=== PATIENT | male | born 1970 | race Caucasian/White ===

== ENCOUNTER 2023-10-10 08:24 | Emergency (ER) | payer MEDICAID ==
[~2023-10-10] VITALS: Ht 167.6 cm; Wt 75.0 kg
[2023-10-10 08:29] VITALS: BP 192/107; PULSE 72; RESP 16; TEMP 98.5
[2023-10-10] MEDS: LIDOCAINE 1% 10 ML VIAL SQ ONE (08:51)
[2023-10-10] MEDS: PERTUSS(ACELL),DIPH,TET/PF 0.5 ML SYRINGE [ADULT] IM. ONE (08:52)
== END 2023-10-10 09:13 | disposition home or self-care (01) ==
LOC: EMS 08:24
DX: S61.232A Puncture wound without foreign body of right middle finger without damage to nail, initial encounter (principal); E11.9 Type 2 diabetes mellitus without complications; I10 Essential (primary) hypertension; X58.XXXA Exposure to other specified factors, initial encounter; Y93.89 Activity, other specified; Y92.89 Other specified places as the place of occurrence of the external cause; Y99.8 Other external cause status
CPT/HCPCS: 99283; 90715; 90471; J3490